=== PATIENT | male | born 1985 | race African-American/Black ===

== ENCOUNTER 2017-11-16 13:54 | Emergency (ER) | payer MEDICARE, MEDICAID ==
[~2017-11-16] VITALS: Ht 167.6 cm; Wt 75.0 kg
[2017-11-16] MEDS ORDERED: MAGNESIUM/ALUMINUM HYDROXIDE/SIMETHICONE 30ML UDC PO STA (14:33)
[2017-11-16] MEDS ORDERED: VISCOUS LIDOCAINE 2% 15 ML UDC PO STA (14:33)
[2017-11-16] MEDS ORDERED: FAMOTIDINE 20MG TABLET PO ONE (14:45)
[2017-11-16 14:54] LABS: BASOPHILS % 0.3 % (0.0-2.0); EOSINOPHILS % 0.1 % (0.0-5.0); HEMATOCRIT. 43.3 % (42.0-52.0); HEMOGLOBIN. 14.4 g/dL (14.0-18.0); LYMPHOCYTES % 14.5 % (20.0-50.0); MEAN CORPUSCULAR HEMOGLOBIN 26.8 pg (28.0-32.0); MEAN CORPUSCULAR VOLUME 80.5 fL (80.0-94.0); MONOCYTES % 6.7 % (2.0-8.0); NEUTROPHILS % 78.4 % (40.0-76.0); PLATELET 166 x1000/uL (130-400); RED BLOOD CELL COUNT 5.38 mill/uL (4.7-6.1); RED CELL DISTRIBUTION WIDTH 14.6 % (11.6-14.6)
[2017-11-16 15:00] LABS: INR 1.2; PROTHROMBIN TIME 12.3 sec (9.4-11.6)
[2017-11-16 15:01] LABS: CHLORIDE 106 mEq/L (98-107)
[2017-11-16 17:10] VITALS: BP 116/64
== END 2017-11-16 17:11 | disposition home or self-care (01) ==
LOC: ER 15:42
DX: K29.70 Gastritis, unspecified, without bleeding (principal); G80.9 Cerebral palsy, unspecified
CPT/HCPCS: 36415; 80053; 83690; 85025; 85610; 99284

== ENCOUNTER 2018-07-08 09:01 | Emergency (ER) | payer MEDICARE, MEDICAID ==
[~2018-07-08] VITALS: Ht 175.3 cm; Wt 60.0 kg
[2018-07-08 09:15] VITALS: BP 113/66
== END 2018-07-08 15:30 | disposition left against medical advice (07) ==
LOC: ER 09:24
DX: R10.9 Unspecified abdominal pain (principal); Z53.21 Procedure and treatment not carried out due to patient leaving prior to being seen by health care provider

== ENCOUNTER 2022-06-07 13:22 | Emergency (ER) | payer MEDICARE, MEDICAID ==
[~2022-06-07] VITALS: Ht 172.7 cm; Wt 69.0 kg
[2022-06-07 13:28] VITALS: BP 134/79
== END 2022-06-07 17:49 | disposition left against medical advice (07) ==
LOC: ER 13:29
DX: R05.9 Cough, unspecified (principal); R56.9 Unspecified convulsions
CPT/HCPCS: 99281

== ENCOUNTER 2022-08-16 14:53 | Emergency (ER) | payer MEDICARE, MEDICAID ==
[~2022-08-16] VITALS: Ht 167.6 cm; Wt 75.0 kg
[2022-08-16 15:03] VITALS: BP 129/78
[2022-08-16] MEDS ORDERED: IBUP-2029 MT (17:20)
[2022-08-16] MEDS ORDERED: GUAI200T5 MT (17:20)
== END 2022-08-16 18:01 | disposition home or self-care (01) ==
LOC: ER 14:53
DX: J11.1 Influenza due to unidentified influenza virus with other respiratory manifestations (principal); R56.9 Unspecified convulsions
CPT/HCPCS: 99282

== ENCOUNTER 2022-11-13 10:59 | Emergency (ER) | payer MEDICARE, MEDICAID ==
[~2022-11-13] VITALS: Ht 172.7 cm; Wt 58.2 kg
[~2022-11-13 10:59] MED LIST: GUAI200T5 MT; IBUP-2029 MT
[2022-11-13] MEDS ORDERED: TOPUD MT (12:37)
[2022-11-13] MEDS ORDERED: BENZ100C86 MT (12:37)
[2022-11-13 12:55] VITALS: BP 112/70
== END 2022-11-13 12:56 | disposition home or self-care (01) ==
LOC: ER 10:59
DX: R51.9 Headache, unspecified (principal); R05.3 Chronic cough; R09.81 Nasal congestion
CPT/HCPCS: 71045; 99283

== ENCOUNTER 2023-12-17 15:16 | Emergency (ER) | payer MEDICARE, MEDICAID ==
[~2023-12-17] VITALS: Ht 172.7 cm; Wt 160.0 kg
[~2023-12-17 15:16] MED LIST changes: +BENZ100C86 MT; +TOPUD MT
[2023-12-17 15:58] LABS: BASOPHILS % 0.2 % (0.0-2.0); EOSINOPHILS % 0.1 % (0.0-5.0); HEMATOCRIT. 39.8 % (42.0-52.0); HEMOGLOBIN. 12.9 g/dL (14.0-18.0); LYMPHOCYTES % 10.5 % (20.0-50.0); MEAN CORPUSCULAR HGB CONC 32.4 g/dL (31.0-37.0); MEAN CORPUSCULAR VOLUME 83.3 fL (80.0-94.0); MEAN PLATELET VOLUME 9.3 fl (7.4-10.4); MONOCYTES % 6.3 % (2.0-8.0); NEUTROPHILS % 82.9 % (40.0-76.0); PLATELET 162 x1000/uL (130-400); RED BLOOD CELL COUNT 4.78 mill/uL (4.7-6.1); RED CELL DISTRIBUTION WIDTH 14.5 % (11.6-14.6); WHITE BLOOD COUNT 10.3 x1000/uL (4.5-11.0)
[2023-12-17 16:03] LABS: CHLORIDE 105 mEq/L (98-107); SODIUM 140 mEq/L (136-145)
[2023-12-17 16:04] LABS: CALCIUM 8.8 mg/dL (8.7-10.4); CARBON DIOXIDE 31 mEq/L (21-32)
[2023-12-17 16:09] LABS: CREATININE 0.7 mg/dL (0.6-1.3); GLUCOSE 86 mg/dL (70-105); UREA NITROGEN BLOOD 5 mg/dL (9-23)
[2023-12-17 17:08] VITALS: TEMP 97.9; O2SAT 100
[2023-12-17 19:20] VITALS: BP 130/70; PULSE 80; RESP 15
[2023-12-17 19:42] LABS: CLARITY URINE CLEAR (CLEAR); COLOR URINE YELLOW (YELLOW); GLUCOSE URINE NEGATIVE (NEGATIVE); KETONES URINE NEGATIVE (NEGATIVE); LEUKOCYTE ESTERASE URINE NEGATIVE (NEGATIVE); NITRITE URINE NEGATIVE (NEGATIVE); OCCULT BLOOD URINE NEGATIVE (NEGATIVE); PROTEIN URINE NEGATIVE (NEGATIVE); SPECIFIC GRAVITY URINE 1.016 (1.005-1.030)
== END 2023-12-17 20:12 | disposition home or self-care (01) ==
LOC: ER 15:16
DX: B34.9 Viral infection, unspecified (principal); G40.909 Epilepsy, unspecified, not intractable, without status epilepticus
CPT/HCPCS: 36415; 80048; 81003; 85025; 93005; 99284

== ENCOUNTER 2024-01-13 16:50 | Emergency (ER) | payer MEDICARE, MEDICAID ==
[~2024-01-13] VITALS: Ht 172.7 cm; Wt 58.0 kg
[2024-01-13 17:10] VITALS: O2SAT 100
[2024-01-13] MEDS ORDERED: AMOX-494 MT (18:27)
[2024-01-13] MEDS ORDERED: IBUP-2028 MT (18:27)
[2024-01-13] MEDS: IBUPROFEN 400MG TABLET PO ONE (18:30)
[2024-01-13 18:53] VITALS: BP 124/78; PULSE 81; RESP 18; TEMP 98.1
== END 2024-01-13 19:39 | disposition home or self-care (01) ==
LOC: ER 16:50
DX: J02.9 Acute pharyngitis, unspecified (principal); H66.91 Otitis media, unspecified, right ear; Z98.890 Other specified postprocedural states
CPT/HCPCS: 87070; 87430; 99283